=== PATIENT | female | born 1965 | race African-American/Black ===

== ENCOUNTER 2017-05-20 20:46 | Emergency (ER) | payer MEDICAID ==
[2017-05-20] MEDS ORDERED: cefTRIAXone 1 GM in Sodium Chloride 0.9% 50 ML IV ONE (21:09)
[2017-05-20] MEDS ORDERED: Azithromycin 500 MG in Sodium Chloride 0.9% 250 ML IV ONE (21:13)
[2017-05-20 21:24] LABS: % BASOPHILS 0.8 % (0.0-2.0); % EOSINOPHILS 2.4 % (0.0-5.0); % LYMPHOCYTES 31.3 % (20.0-50.0); % MONOCYTES 7.1 % (2.0-10.0); % NEUTROPHILS 58.4 % (40.0-80.0); HEMOGLOBIN 10.8 gm/dL (12-16); MEAN CELL VOLUME 70.3 fl (81-100); MEAN CORPUSCULAR HEMOGLOBIN 22.4 pg (27.0-31.0); MEAN CORPUSCULAR HGB CONC 31.8 pg (28.0-36.0); MEAN PLATELET VOLUME 9.5 fl; NEUTROPHILE ABSOLUTE 3.7 Th/cmm (1.8-8.0); PLATELET COUNT 285 Th/cmm (150-400); RED BLOOD COUNT 4.83 Mil/cmm (3.80-5.10); RED CELL DISTRIBUTION WIDTH 14.9 % (11.5-20.0); WHITE BLOOD COUNT 6.5 Th/cmm (4.8-10.8)
[2017-05-20 21:37] LABS: ALB/GLOB RATIO 1.4 (1.0-1.8); ALKALINE PHOSPHATASE 79 U/L (34-104); ANION GAP 7.9 (7.0-16.0); BILIRUBIN,TOTAL 0.3 mg/dL (0.3-1.0); BUN - UREA NITROGEN 13 mg/dL (7-25); BUN/CREATININE RATIO 18.6; CALCIUM SERUM 9.7 mg/dL (8.6-10.3); CARBON DIOXIDE 30.4 mEq/L (21.0-31.0); CHLORIDE 103 mEq/L (98-107); CREATININE - SERUM 0.7 mg/dL (0.6-1.2); GLUCOSE 172 mg/dL (70-105); POTASSIUM SERUM 3.3 mEq/L (3.5-5.1); SGOT 15 U/L (13-39); SGPT/ALT 17 U/L (7-52); SODIUM SERUM 138 mEq/L (136-145)
[2017-05-20] MEDS ORDERED: Mag Sulfate 2gm/50mL Premix 2 GM/50 ML BAG IV ONE (23:12)
[2017-05-20] MEDS ORDERED: Potassium Chloride 20 mEq ER Tab PO ONE (23:16)
[2017-05-20 23:52] LABS: URINE BILIRUBIN NEGATIVE (NEGATIVE); URINE BLOOD NEGATIVE (NEGATIVE); URINE GLUCOSE (UA) 500 mg/dL (NEGATIVE); URINE KETONE NEGATIVE (NEGATIVE); URINE PH 6.5 (4.6 - 8.0); URINE PROTEIN 100 mg/dL (NEGATIVE); URINE UROBILINOGEN 0.2 E.U./dL (0.2 - 1.0)
[2017-05-20 23:57] LABS: URINE BACTERIA MODERATE /hpf (NONE SEEN); URINE COLOR YELLOW; URINE EPITHELIAL CELLS MODERATE /lpf (FEW); URINE RBC 0-1 /hpf (0-5)
[2017-05-21] MEDS ORDERED: Potassium Chloride 20 mEq ER Tab PO ONE (01:02)
[2017-05-21] MEDS ORDERED: Mag Sulfate 2gm/50mL Premix 2 GM/50 ML BAG IV ONE (01:03)
--- NOTE | 2017-05-21 03:00 | ER Physician Documentation ---
DATE OF SERVICE: 05/20/2017 ER ADMISSION AND TREATMENT REPORT This is a 52-year-old female patient who according to her is homeless, is having sore throat, pain in the upper part of the neck and upper part of the chest, and the patient had been having this complaint for the past 1 week or so. HISTORY OF PRESENT ILLNESS: The patient says that she is having this pain. She went to [facility] in 05/18/2017 with the same complaint. She said she was allergic to Coram. The patient was given some medications. She is very rude, very rough, and not willing to give any information. The patient was triaged by Herlinda, our Emergency Room nurse. Vital signs were taken. Temperature was 97.6, pulse of 60, respiration 18, and blood pressure initially was 180/120 and second blood pressure reading was 158/99. We are going to check one more blood pressure readings and put the patient on a motor route carrier. Height was 5 feet 2 inches, weight 183 pounds. Last menstrual period is unknown. The patient has this complaint and she has no place to go, so she came here. She knows she is at [facility]. PAST MEDICAL HISTORY: History of hypertension, diabetes, and history of some hip problem. She does not know what other medications she has been taking, but the medication list that she gave to the nurse was metoprolol 100 mg daily, metformin 500 mg b.i.d., and Motrin tablets. The patient has generalized aches and pains, otherwise no significant complaints. REVIEW OF SYSTEMS: EYES: No history of double vision, blurring, or blindness. No complaint. She has no eye surgery. CENTRAL NERVOUS SYSTEM: No history of TIA, stroke, encephalitis, or meningitis. No history of head injury. GENERAL AND CONSTITUTIONAL: The patient denies any fever, chills, rigors, or weight loss, but she says she is having weakness. She is having poor appetite. SKIN: She does not have any rash, no bruising. She has a headache. She has neck pain. ENT: No ear discharge. No ear drainage. Nasal, no drainage. NECK: She is having pain, but she does not have any stiffness in the neck. She does not have any meningeal signs. CARDIOVASCULAR: No history of any definite chest pain, but upper part of the chest, she says she has some discomfort, but no palpitations. No PND, no orthopnea, no dyspnea, and no edema. No evidence of any cardiac arrhythmias. PULMONARY: No history of shortness of breath. No history of PND, wheezing, or asthma. GI: The patient says she has some heartburn, nausea, and vomiting. GENITOURINARY: No burning, frequency, or dysuria. The urine that I saw looked to be somewhat cloudy. BILLING SUPERVISOR: The patient had a surgery done. MUSCULOSKELETAL: The patient has generalized aches and pains. ENDOCRINE: The patient has mild polyuria and mild polydipsia, history of hypertension is present. HEMATOPOIETIC: The patient has no history of bruising. No history of lymphadenopathy. ALLERGIC: No urticaria, but the patient is allergic to Coram according to the notes and the patient is not willing to give part with any other information. She has a rash according to the triage nurse. NEUROLOGICAL: No history of syncope. No history of seizure disorder. No history of dizziness. No history of confusion. The patient is angry. PAST MEDICAL HISTORY: She has a history of homelessness, history of hypertension, diabetes mellitus, and history of GERD. No history of any other medical illness, but will get some lab workup done. FAMILY HISTORY: According to her is benign and negative, but she does not part with any history. SOCIAL HISTORY: Homelessness. She does not smoke. She does not drink. SURGICAL HISTORY: As I mentioned earlier, history of done in the past. No history of hernia surgery. No history of pacemaker surgery. No history of appendicectomy. PSYCHIATRIC HISTORY: The patient is homeless, history of anger, and history of depression. No definite other history is available. The patient went 2 days ago at [facility], was discharged because she had constipation. PHYSICAL EXAMINATION: GENERAL: The patient appears to be well built and nourished, not in any acute distress, but she complains of the neck pain. Complains of upper thorax pain. No radiation of the pain. HEENT: Normal. Eyes appear to be normal. Lids and conjunctivae within normal limits. Pupils are equal and reacting to light. Extraocular movements are normal. Other eye movements normal. SKIN: Normal. No rash. No lymphadenopathy is noted. EARS, NOSE, AND THROAT: Essentially normal. Tympanic membranes are normal. Oropharynx is normal. NECK: Supple. RESPIRATORY: Fairly decent air entry in both lungs without any rales, rhonchi, or bronchial breathing. CARDIAC: The patient has normal heart sounds. Soft fourth heart sounds. Third heart sound is absent. Second heart sound is physiologically split. No diastolic murmur. No abnormal systolic murmur. No evidence of any pericardial rub. GENITOURINARY: Otherwise benign and negative. EXTREMITIES: Normal. There might be trace edema, but otherwise moves all the extremities, walking into the bathroom to give urine. Other examination is within normal limits. LABORATORY DATA: Awaited. Radiology is awaited. EKG has been ordered and will get it done. EMERGENCY ROOM EVALUATION: The patient is complaining of generalized aches and pains; neck pain and upper thoracic pain, not feeling good; constipation; history of ; generalized discomfort; noncooperative; headache; and homelessness situation. No laceration and no injury is noted. We will get the labs done and we will treat. Her other diagnoses includes diabetes mellitus and hypertension. We will treat her accordingly. We will get the labs ordered. She is allergic to Coram in the form of rash. Also, history is that the patient has constipation for 1 week duration and sore throat for 1 week duration. The patient has been given Zithromax and the patient has been given Toradol and the patient has been given Rocephin at the present moment and I will give the patient metoprolol and Norvasc as needed. Other problem the patient has is a hip problem, so we will give the patient prescribe her some PPI along with some Tylenol or Toradol. She has been given IV. We will give her some PPI and send the urine for routine culture. I am very happy that the nurses working with me are very helpful and I am glad. JOB# [id number]
--- NOTE | 2017-05-21 08:22 | Diagnostic Imaging Report ---
CHEST X-RAY: AP view INDICATION: Pneumonia COMPARISON: None FINDINGS: Low lung volumes are noted with no focal consolidation or effusions. Mild increased interstitial lung markings are noted. Cardiomegaly is noted. Degenerative changes of the spine are noted. IMPRESSION: Low lung volumes and mildly increased interstitial lung markings. No focal consolidation identified. Cardiomegaly.
--- NOTE | 2017-05-21 11:09 | ER Physician Documentation ---
DATE OF SERVICE: 05/21/2017 ADDENDUM The EKG was found to be within normal limits. LABORATORY DATA: Showed white count to be 6.5, hemoglobin 10.8, hematocrit 34, platelet count 285,000, neutrophils 58.4. Lactic acid 1.04. No evidence of any infection was seen except for maybe mild upper respiratory tract infection. Magnesium was 1.8. The patient was given 2 grams of magnesium sulfate. Potassium was 3.3. The patient was given 40 mEq of KCl. Glucose was 172, patient is a diabetic patient. But she does not take her medications in time. This was a random sample. Calcium level was 9.7, albumin was 2.9. The patient's urine glucose was 500 mg percent, urine protein 100 mg percent and WBC is 6.10. FINAL DIAGNOSES: 1. Neck pain, but no evidence of any meningeal signs. 2. Upper respiratory tract infection, generalized body ache and upper chest pain. Anxiety and a history of hypertension. The patient needs to go and see her own primary physician for continuation of care for her diabetes and hypertension. For upper respiratory tract infections, she was given I can give her prescriptions for diabetes and maybe that could help her out. JOB# [id number]
--- NOTE | 2017-05-22 17:39 | ER Physician Documentation ---
DATE OF SERVICE: 05/20/2017 ADDENDUM EKG was done, which showed normal sinus rhythm with a heart rate of 55 beats per minute and minor nonspecific ST-T changes in the inferior leads. Otherwise, appears to be within normal limits. White count is 6.5, hemoglobin 10.8, hematocrit 34, and platelet count 285,000. Neutrophils is 58.4. Lactic acid is within normal limits at 1.04. Magnesium is 1.8. The patient was given 2 grams of magnesium sulfate. Potassium was 3.3. The patient was given 40 mEq of potassium sulfate by mouth. Glucose is 172 and we might give her some 4 units of Regular insulin in the IV. We will give the patient 4 units of insulin subcutaneously at the present moment and when the patient is discharged, she will be given some antibiotics to go home and the patient will be given some metformin for her diabetes mellitus. Her calcium level is 9.7, albumin is 4.1, and globulin is 2.9. Bilirubin is 0.3, AST is 15, ALT is 17, and alkaline phosphatase is 79. FINAL DIAGNOSES: Upper respiratory tract infection, upper chest pain, low sodium, low potassium level, and mild anemia. JOB# [id number]
== END 2017-05-21 07:00 | disposition home or self-care (01) ==
LOC: ER 20:46
DX: M54.2 Cervicalgia (principal); J06.9 Acute upper respiratory infection, unspecified; I10 Essential (primary) hypertension; E11.9 Type 2 diabetes mellitus without complications
CPT/HCPCS: 99285; 96365; 96366; 96368; 96375; 93005; 71010; 36415; 83605; 86141; 85025; 87086; 81001; 83735; 80053; C9113; J1885; J0696; J3475; J0456